=== PATIENT | female | born 1960 | race Caucasian/White ===

== ENCOUNTER → 2018-11-07 | Outpatient (CLI) | payer OTHER ==
[2018-11-08 15:07] LABS: HPV 16 Negative (Negative); HPV 18 Negative (Negative); HPV OTHER HR TYPES Negative (Negative)
== END | disposition home or self-care (01) ==
LOC: LAB 13:05 → LAB SHORT 13:05
PROVIDERS: Internal Medicine
DX: Z12.4 Encounter for screening for malignant neoplasm of cervix (principal)
CPT/HCPCS: 87624; G0145

== ENCOUNTER 2020-01-02 06:52 | Day surgery (SDC) | payer OTHER ==
[~2020-01-02 06:52] MED LIST: AMLO5 PO; RANO500T PO
--- NOTE | 2020-01-02 08:08 | NUR ---
PT STATES SHE GETS CHEST PAIN WITH NITROGLYCERIN. SPOKE WITH DR. PITT AND STATED TO HOLD NITRO FOR CTA.
--- NOTE | 2020-01-02 08:39 | NUR ---
PROCEDURE COMPLETE. VS CALLED TO PHYSICIAN AND STATED OK TO SEND PATIENT HOME.
--- NOTE | 2020-01-02 08:45 | NUR ---
WRITTEN AND VERBAL D/C INSTUCTIONS GIVEN TO PT WITH STATED UNDERSTANDING.
== END 2020-01-02 22:35 | disposition home or self-care (01) ==
LOC: CT 06:52 → ORD 06:52 → CT 08:00 → ORD 22:35
DX: I21.4 Non-ST elevation (NSTEMI) myocardial infarction (principal); I25.10 Atherosclerotic heart disease of native coronary artery without angina pectoris; I35.0 Nonrheumatic aortic (valve) stenosis; E78.5 Hyperlipidemia, unspecified; Z79.899 Other long term (current) drug therapy; I45.10 Unspecified right bundle-branch block; Z79.82 Long term (current) use of aspirin
CPT/HCPCS: 75574; Q9967